=== PATIENT | male | born 1980 | race Caucasian/White ===

== ENCOUNTER 2018-06-01 08:48 | Emergency (ER) | payer MEDICAID ==
[~2018-06-01] VITALS: Ht 177.8 cm; Wt 68.2 kg
[2018-06-01 08:50] VITALS: BP 118/77
[2018-06-01] MEDS ORDERED: IBUPROFEN 800 MG TABLET ONE (10:28)
[2018-06-01] MEDS ORDERED: IBUPROFEN 800 MG TABLET PO ONE (10:30)
== END 2018-06-01 10:34 | disposition home or self-care (01) ==
LOC: EMS 08:49
DX: M10.9 Gout, unspecified (principal); F17.210 Nicotine dependence, cigarettes, uncomplicated

== ENCOUNTER 2018-06-03 09:43 | Emergency (ER) | payer MEDICAID ==
[~2018-06-03] VITALS: Ht 182.9 cm; Wt 90.9 kg
[2018-06-03] MEDS ORDERED: IBUPROFEN 600 MG TABLET PO ONE (11:15)
[2018-06-03 13:02] VITALS: BP 130/76
== END 2018-06-03 13:04 | disposition home or self-care (01) ==
LOC: EMS 09:44
DX: M79.645 Pain in left finger(s) (principal); F17.210 Nicotine dependence, cigarettes, uncomplicated
CPT/HCPCS: 99406

== ENCOUNTER 2018-06-11 14:41 | Emergency (ER) | payer MEDICAID ==
[~2018-06-11] VITALS: Ht 180.3 cm; Wt 66.4 kg
[2018-06-11 15:30] VITALS: BP 119/72
[2018-06-11] MEDS ORDERED: KETOROLAC TROMETHAMINE 60 MG/2 ML VIAL IM ONE (17:00)
[2018-06-11] MEDS ORDERED: IBUPROFEN 800 MG TABLET PO ONE (17:15)
== END 2018-06-11 18:28 | disposition home or self-care (01) ==
LOC: EMS 14:41
DX: M25.542 Pain in joints of left hand (principal); F17.210 Nicotine dependence, cigarettes, uncomplicated
CPT/HCPCS: 73130; 99283; 99406; J1885